=== PATIENT | male | born 1995 | race African-American/Black ===

== ENCOUNTER 2019-11-03 06:21 | Emergency (ER) | payer MEDICAID ==
[~2019-11-03] VITALS: Ht 185.4 cm; Wt 81.6 kg
[2019-11-03 06:47] VITALS: BP 140/71
== END 2019-11-03 09:31 | disposition left against medical advice (07) ==
LOC: ER 06:21
DX: K08.89 Other specified disorders of teeth and supporting structures (principal); Z53.21 Procedure and treatment not carried out due to patient leaving prior to being seen by health care provider

== ENCOUNTER 2020-12-01 15:26 | Inpatient (IN) | payer MEDICAID, OTHER ==
[~2020-12-01] VITALS: Ht 185.4 cm; Wt 74.8 kg
[2020-12-01] MEDS ORDERED: MIDAZOLAM DRIP 50 mg/50mL 50 ML IV ONE (15:41)
[2020-12-01] MEDS ORDERED: PROPOFOL 100 ML IV ONE (15:59)
[2020-12-01] MEDS ORDERED: THIAMINE 100mg/ml INJ (200mg/2ml VIAL) IV ONE (16:00)
[2020-12-01] MEDS ORDERED: SODIUM CHLORIDE 0.9% 1,000 ML IV ONE ×2 (16:00)
[2020-12-01] MEDS ORDERED: MIDAZOLAM DRIP 50 mg/50mL 50 ML IV SCH ×2 (16:30→18:45)
[2020-12-01] MEDS ORDERED: PROPOFOL 100 ML IV SCH ×2 (16:30→18:45)
[2020-12-01] MEDS ORDERED: fentaNYL Drip 2500mCg/250mlNS 250 ML IV ONE (16:47)
[2020-12-01] MEDS ORDERED: fentaNYL Drip 2500mCg/250mlNS 250 ML IV SCH ×2 (17:00→18:45)
[2020-12-01 17:02] LABS: Basophils # (auto) 0.1 10 ^3/uL (0-0.2); Basophils % (auto) 0.4 % (0.0-2.0); Eosinophils # (auto) 0.1 10 ^3/uL (0-0.8); Eosinophils % (auto) 0.3 % (0.0-7.0); Hematocrit 49.5 % (41.0-53.0); Hemoglobin 16.3 g/dL (13.5-17.5); Lymphocytes % (auto) 13.1 % (10.0-50.0); Mean Corpuscular Volume 93.7 fL (80.0-100.0); Monocytes % (auto) 4.1 % (0.0-12.0); Neutrophils % (auto) 82.1 % (37.0-80.0); Nucleated Red Blood Cells % 1.2 %; Red Blood Cells 5.28 10^6/uL (4.5-5.90); Red Cell Distribution Width 12.7 % (11.8-14.3); White Blood Cell 23.1 10^3/uL (4.4-10.8)
[2020-12-01 17:22] LABS: Chloride 106 mmol/L (98-107); Potassium 4.6 mmol/L (3.5-5.1); Sodium 139 mmol/L (136-145)
[2020-12-01 17:25] LABS: INR 1.05 (0.9-1.15); Partial Thromboplastin Time 23.4 sec (23.0-31.2)
[2020-12-01 17:31] LABS: Alanine Aminotransferase 129 U/L (16-61); Albumin 4.3 g/dL (3.4-5.0); Alkaline Phosphatase 82 U/L (45-117); Anion Gap 15 (5-15); Aspartate Aminotransferase 185 U/L (15-37); BUN/Creatinine Ratio 7.3; Bilirubin, Total 0.5 mg/dL (0.2-1.0); Blood Alcohol < 3.0 mg/dL (0-5); Blood Urea Nitrogen 16 mg/dL (7-18); Calcium 8.2 mg/dL (8.5-10.1); Carbon Dioxide 18 mmol/L (21-32); GFR African American 47 mL/min; GFR Non-African American 39 mL/min; Glucose 97 mg/dL (74-106); Total Protein 8.1 g/dL (6.4-8.2)
[2020-12-01 17:32] LABS: Urine Bacteria MOD /hpf (None Seen); Urine Blood Negative /uL (Negative); Urine Mucus FEW (None Seen); Urine Specific Gravity 1.017 (1.001-1.035); Urine Sperm PRESENT /hpf (None Seen); Urine WBC 5 /hpf (0 - 3)
[2020-12-01 17:43] LABS: Amphetamine Screen, Urine POSITIVE (NEGATIVE); Barbiturate Scree,Urine NEGATIVE (NEGATIVE); Benzodiazephine Screen, Urine NEGATIVE (NEGATIVE); Cannabinoid Screen, Urine POSITIVE (NEGATIVE); Cocaine Screen, Urine NEGATIVE (NEGATIVE); Opiate Scree,Urine NEGATIVE (NEGATIVE); Phencyclidine Screen, Urine NEGATIVE (NEGATIVE)
[2020-12-01] MEDS ORDERED: NITROGLYCERIN 0.4 MG SL TAB SL PRN (18:45)
[2020-12-01] MEDS ORDERED: MORPHINE SULFATE INJECTION 2 MG/ML SYRG IV PRN (18:45)
[2020-12-01] MEDS ORDERED: ENOXAPARIN SOD 40 MG/0.4 ML SYRINGE SC SCH (18:54)
[2020-12-01] MEDS: SODIUM BICARBONATE 50ML VIAL 50 ML in SOD CHL 0.45% 1,000 ML IV SCH (20:00)
[2020-12-01 20:10] VITALS: BP 105/71
[2020-12-01] MEDS: CLINDAMYCIN 300MG IV 50 ML IV SCH (21:20)
[2020-12-01] MEDS: cefTRIAXone 1GM/50ML D5W 50 ML IV SCH (21:20)
[2020-12-02 02:33] VITALS: BP 89/51
[2020-12-02] MEDS: CLINDAMYCIN 300MG IV 50 ML IV SCH ×2 (03:00→08:23)
[2020-12-02 06:30] VITALS: BP 107/62
[2020-12-02 07:08] LABS: Basophils # (auto) 0.1 10 ^3/uL (0-0.2); Basophils % (auto) 0.5 % (0.0-2.0); Eosinophils # (auto) 0.1 10 ^3/uL (0-0.8); Eosinophils % (auto) 0.6 % (0.0-7.0); Hemoglobin 13.5 g/dL (13.5-17.5); Lymphocytes # (auto) 4.6 10 ^3/uL (0.4-5.4); Lymphocytes % (auto) 31.6 % (10.0-50.0); Mean Corpuscular Hemoglobin 30.2 pg (28.0-32.0); Mean Corpuscular Hgb Conc. 32.9 g/dL (32.0-36.0); Mean Corpuscular Volume 91.8 fL (80.0-100.0); Monocytes # (auto) 0.9 10 ^3/uL (0-1.3); Neutrophils # (auto) 8.8 10 ^3/uL (1.6-8.6); Neutrophils % (auto) 61.3 % (37.0-80.0); Nucleated Red Blood Cells % 0.1 %; Red Blood Cells 4.46 10^6/uL (4.5-5.90); Red Cell Distribution Width 12.8 % (11.8-14.3); White Blood Cell 14.4 10^3/uL (4.4-10.8)
[2020-12-02 07:24] LABS: Calcium 7.9 mg/dL (8.5-10.1); Potassium 3.9 mmol/L (3.5-5.1)
[2020-12-02] MEDS: SODIUM BICARBONATE 50ML VIAL 50 ML in SOD CHL 0.45% 1,000 ML IV SCH (08:20)
[2020-12-02] MEDS: cefTRIAXone 1GM/50ML D5W 50 ML IV SCH (08:23)
[2020-12-02 10:00] VITALS: BP 124/66
[2020-12-02] MEDS ORDERED: CALCIUM CARB 500 MG CHEW TAB PO SCH (12:00)
== END 2020-12-02 12:23 | disposition left against medical advice (07) | DRG 812 ==
LOC: EDBD 15:26 → ER 15:31 → EDUNIT# 15:31 → TELE 18:34
PROVIDERS: ADMIT Nurse Practitioner Acute Care; ATTEND Internal Medicine
PROC: 5A1935Z Respiratory Ventilation, Less than 24 Consecutive Hours (ICD-10-PCS; principal; 2020-12-01)
PROC: 0BH17EZ Insertion of Endotracheal Airway into Trachea, Via Natural or Artificial Opening (ICD-10-PCS; 2020-12-01)
DX: T43.621A Poisoning by amphetamines, accidental (unintentional), initial encounter (principal); J96.00 Acute respiratory failure, unspecified whether with hypoxia or hypercapnia; I21.A1 Myocardial infarction type 2; N17.0 Acute kidney failure with tubular necrosis; G93.41 Metabolic encephalopathy; A41.9 Sepsis, unspecified organism; N30.90 Cystitis, unspecified without hematuria; E83.51 Hypocalcemia; F19.10 Other psychoactive substance abuse, uncomplicated; N18.9 Chronic kidney disease, unspecified; Z20.822 Contact with and (suspected) exposure to COVID-19
CPT/HCPCS: 31500; 36415; 36600; 51702; 70450; 71045; 80048; 80053; 80307; 80320; 81001; 82805; 84484; 85025; 85610; 85730; 87040; 87070; 87077; 87086; 87186; 87205; 87426; 93005; 93306; 94002; 94003; 99291; A4618; G0378; J0696; J2250; J2704; J3490

== ENCOUNTER 2023-04-01 12:38 | Emergency (ER) | payer MEDICAID ==
[~2023-04-01] VITALS: Ht 185.4 cm; Wt 82.0 kg
[2023-04-01] MEDS ORDERED: IBUP800T27 PO (14:19)
[2023-04-01 14:24] VITALS: BP 138/64
== END 2023-04-01 14:27 | disposition home or self-care (01) ==
LOC: ER 12:38
DX: S82.235D Nondisplaced oblique fracture of shaft of left tibia, subsequent encounter for closed fracture with routine healing (principal); F12.10 Cannabis abuse, uncomplicated; Z88.6 Allergy status to analgesic agent; X58.XXXD Exposure to other specified factors, subsequent encounter
CPT/HCPCS: 29515; 73590

== ENCOUNTER 2023-06-29 19:50 | Emergency (ER) | payer MEDICAID ==
[~2023-06-29] VITALS: Ht 185.4 cm; Wt 81.8 kg
[~2023-06-29 19:50] MED LIST: IBUP-1456 PO
[2023-06-29 20:34] LABS: Basophils # (auto) 0 10 ^3/uL (0-0.2); Basophils % (auto) 0.3 % (0.0-2.0); Eosinophils # (auto) 0.3 10 ^3/uL (0-0.8); Eosinophils % (auto) 2.4 % (0.0-7.0); Hemoglobin 14.8 g/dL (13.5-17.5); Lymphocytes # (auto) 6.2 10 ^3/uL (0.4-5.4); Lymphocytes % (auto) 52.6 % (10.0-50.0); Mean Corpuscular Hemoglobin 29.7 pg (28.0-32.0); Mean Corpuscular Hgb Conc. 32.9 g/dL (32.0-36.0); Mean Corpuscular Volume 90.5 fL (80.0-100.0); Monocytes # (auto) 0.8 10 ^3/uL (0-1.3); Monocytes % (auto) 7.1 % (0.0-12.0); Neutrophils # (auto) 4.4 10 ^3/uL (1.6-8.6); Neutrophils % (auto) 37.6 % (37.0-80.0); Nucleated Red Blood Cells % 0.2 %; Red Blood Cells 4.97 10^6/uL (4.5-5.90); Red Cell Distribution Width 14.9 % (11.8-14.3); White Blood Cell 11.8 10^3/uL (4.4-10.8)
[2023-06-29 20:55] LABS: INR 1.13 (0.9-1.15); Partial Thromboplastin Time 30.8 SEC (24.5-34.5); Prothrombin Time 11.8 sec (9.3-11.8)
[2023-06-29 22:02] LABS: Alanine Aminotransferase 18 U/L (7-40); Albumin 4.5 g/dL (3.2-4.8); Alkaline Phosphatase 63 U/L (46-116); Anion Gap 7.5 (5-15); Aspartate Aminotransferase 15 U/L (13-40); Calcium 9.2 mg/dL (8.5-10.1); Carbon Dioxide 24.5 mmol/L (20-30); Chloride 107 mmol/L (98-107); Glucose 107 mg/dL (74-106); Magnesium 1.8 mg/dL (1.6-2.6); Sodium 139 mmol/L (136-145)
[2023-06-29 22:03] LABS: Bilirubin, Total 0.5 mg/dL (0.2-1.0)
[2023-06-29 22:06] LABS: BUN/Creatinine Ratio 6.3 (10.0-20.0); Blood Urea Nitrogen < 5 mg/dL (9-23)
[2023-06-29 22:08] LABS: Potassium 2.8 mmol/L (3.5-5.1)
[2023-06-29] MEDS ORDERED: POTASSIUM EFFERVESENT TAB 25 MEQ PO ONE (23:15)
[2023-06-30 01:16] VITALS: BP 119/76; PULSE 87; RESP 15; TEMP 98.1; O2SAT 99
== END 2023-06-30 01:19 | disposition home or self-care (01) ==
LOC: ER 19:50
DX: M79.605 Pain in left leg (principal); E87.6 Hypokalemia; F41.0 Panic disorder [episodic paroxysmal anxiety]; F12.10 Cannabis abuse, uncomplicated; F15.10 Other stimulant abuse, uncomplicated; R06.02 Shortness of breath
CPT/HCPCS: 36415; 71045; 73590; 80053; 83735; 83880; 84484; 85025; 85610; 85730; 93005

== ENCOUNTER 2024-04-22 02:40 | Emergency (ER) | payer MEDICAID ==
[~2024-04-22] VITALS: Ht 185.4 cm; Wt 87.7 kg
[2024-04-22 03:10] VITALS: BP 129/82; PULSE 86; RESP 16; TEMP 98.5; O2SAT 99
[2024-04-22] MEDS ORDERED: PRED20TA2 PO (03:30)
[2024-04-22] MEDS ORDERED: AMOX500T3 PO (03:30)
[2024-04-22] MEDS: DexAMETHasone SOD PHOS 10MG/1ML VIAL INJ IM ONE (03:48)
[2024-04-22] MEDS: cefTRIAXone SOD 1,000 MG VL IM ONE (03:48)
== END 2024-04-22 05:00 | disposition home or self-care (01) ==
LOC: ER 02:40
DX: J03.90 Acute tonsillitis, unspecified (principal); F12.10 Cannabis abuse, uncomplicated; F15.10 Other stimulant abuse, uncomplicated
CPT/HCPCS: 96372; 99284; J0696; J1100

== ENCOUNTER 2024-08-28 01:08 | Emergency (ER) | payer MEDICAID ==
[~2024-08-28] VITALS: Ht 185.4 cm; Wt 86.3 kg
[~2024-08-28 01:08] MED LIST changes: +AMOX500T3 PO; +PRED20TA2 PO
[2024-08-28 01:20] VITALS: BP 135/76; PULSE 80; RESP 18; O2SAT 99
[2024-08-28 01:29] LABS: Basophils # (auto) 0.2 10 ^3/uL (0-0.2); Basophils % (auto) 1.4 % (0.0-2.0); Eosinophils # (auto) 0.1 10 ^3/uL (0-0.8); Eosinophils % (auto) 0.8 % (0.0-7.0); Hematocrit 45.4 % (41.0-53.0); Hemoglobin 15.3 g/dL (13.5-17.5); Lymphocytes # (auto) 4.8 10 ^3/uL (0.4-5.4); Lymphocytes % (auto) 35.5 % (10.0-50.0); Mean Corpuscular Hemoglobin 31.1 pg (28.0-32.0); Mean Corpuscular Hgb Conc. 33.8 g/dL (32.0-36.0); Mean Corpuscular Volume 92.2 fL (80.0-100.0); Monocytes # (auto) 0.9 10 ^3/uL (0-1.3); Monocytes % (auto) 6.3 % (0.0-12.0); Neutrophils # (auto) 7.6 10 ^3/uL (1.6-8.6); Platelet Count (auto) 285 10^3/uL (140-450); Red Blood Cells 4.93 10^6/uL (4.5-5.90); Red Cell Distribution Width 14.6 % (11.8-14.3); White Blood Cell 13.6 10^3/uL (4.4-10.8)
[2024-08-28 01:37] LABS: Alanine Aminotransferase 12 U/L (7-40); Albumin 5.1 g/dL (3.2-4.8); Alkaline Phosphatase 72 U/L (46-116); Anion Gap 4 (5-15); Aspartate Aminotransferase 9 U/L (13-40); BUN/Creatinine Ratio 6.6 (10.0-20.0); Bilirubin, Total 0.5 mg/dL (0.2-1.0); Blood Urea Nitrogen 7 mg/dL (9-23); Calcium 9.7 mg/dL (8.7-10.4); Carbon Dioxide 26 mmol/L (20-31); Chloride 107 mmol/L (98-107); Glucose 104 mg/dL (74-106); Potassium 3.3 mmol/L (3.5-5.1); Sodium 137 mmol/L (136-145)
== END 2024-08-28 02:28 | disposition left against medical advice (07) ==
LOC: ER 01:08
DX: R07.89 Other chest pain (principal); R42 Dizziness and giddiness; Z53.21 Procedure and treatment not carried out due to patient leaving prior to being seen by health care provider
CPT/HCPCS: 36415; 80053; 83880; 84484; 85025; 85379; 93005